=== PATIENT | female | born 1985 | race African-American/Black ===

== ENCOUNTER 2018-01-08 11:59 | Emergency (ER) | payer OTHER ==
[~2018-01-08] VITALS: Ht 162.6 cm; Wt 72.6 kg
[~2018-01-08 11:59] MED LIST: AMOX1TAB12 PO; AMOXICILLIN125 MG; IBUPROFEN800 MG PO; PRENATAL1 TAB; PRENATAL1 TAB PO
== END 2018-01-08 13:12 | disposition home or self-care (01) ==
LOC: ER 11:59
DX: M25.511 Pain in right shoulder (principal)

== ENCOUNTER 2018-07-18 17:52 | Emergency (ER) | payer OTHER ==
[~2018-07-18] VITALS: Ht 162.6 cm; Wt 77.1 kg
== END 2018-07-18 20:30 | disposition home or self-care (01) ==
LOC: ER 17:52
DX: L02.416 Cutaneous abscess of left lower limb (principal)

== ENCOUNTER → 2018-10-08 | Emergency (ER) | payer OTHER ==
[~2018-10-08] VITALS: Ht 162.6 cm; Wt 77.1 kg
== END | disposition home or self-care (01) ==
LOC: ER 08:51
DX: O26.891 Other specified pregnancy related conditions, first trimester (principal); R10.2 Pelvic and perineal pain; Z34.01 Encounter for supervision of normal first pregnancy, first trimester

== ENCOUNTER 2018-11-04 11:40 | Emergency (ER) | payer OTHER ==
[~2018-11-04] VITALS: Ht 162.6 cm; Wt 69.9 kg
== END 2018-11-04 19:35 | disposition home or self-care (01) ==
LOC: ER 11:40
DX: O20.0 Threatened abortion (principal)

== ENCOUNTER 2019-10-11 11:04 | Emergency (ER) | payer OTHER ==
[~2019-10-11] VITALS: Ht 162.6 cm; Wt 77.1 kg
[2019-10-11] MEDS ORDERED: BACTRIM DS TAB1 EACH PO (18:36)
== END 2019-10-11 20:23 | disposition home or self-care (01) ==
LOC: ER
DX: N76.4 Abscess of vulva (principal); B95.7 Other staphylococcus as the cause of diseases classified elsewhere

== ENCOUNTER 2021-04-06 13:47 | Emergency (ER) | payer OTHER ==
[~2021-04-06] VITALS: Ht 162.6 cm; Wt 78.0 kg
[~2021-04-06 13:47] MED LIST changes: +BACTRIM DS TAB1 EACH PO
[2021-04-06] MEDS ORDERED: PEPCID AC20 MG PO (17:27)
[2021-04-06] MEDS ORDERED: NAPROXEN500 MG PO (17:27)
== END 2021-04-06 18:32 | disposition home or self-care (01) ==
LOC: ER 13:47
DX: N92.5 Other specified irregular menstruation (principal)